=== PATIENT | female | born 1955 | race Hispanic/Latino ===

== ENCOUNTER 2019-12-26 08:45 | Inpatient (IN) | payer MEDICARE ==
[~2019-12-26] VITALS: Ht 162.6 cm; Wt 78.6 kg
[~2019-12-26 08:45] MED LIST: BUSP7.5T7 PO; ENAL5TAB17 PO; FERR325T22 PO; FURO20TA4 PO; HYDR-3830 PO; MECL-160 PO; ONDA-104 PO; POTA-9 PO; PROP10TA10 PO
[2019-12-26] MEDS ORDERED: ACETAMINOPHEN 325 MG TAB ONE (08:55)
[2019-12-26] MEDS ORDERED: ONDANSETRON HCL 4 MG/2 ML VIAL ONE (09:10)
[2019-12-26 09:13] LABS: APPEARANCE,URINE Clear (CLEAR); BILIRUBIN,URINE Small (NEGATIVE); COLOR,URINE Dark Yellow (YELLOW); GLUCOSE, URINE (UA) Negative (NEGATIVE); KETONES,URINE Trace mg/dL (NEGATIVE); LEUKOCYTE ESTERASE ,URINE Trace (NEGATIVE); NITRATE,URINE Negative (NEGATIVE); OCCULT BLOOD,URINE Nonhemolyzed Trace (NEGATIVE); PROTEIN,URINE Trace mg/dL (NEGATIVE)
[2019-12-26 09:17] LABS: BASOPHILS % (AUTO) 0.2 % (0.0-5.0); EOSINOPHILS % (AUTO) 0.2 % (0.0-8.0); HEMATOCRIT 36.4 % (36-48); LYMPHOCYTES % (AUTO) 13.6 % (21.0-51.0); MEAN CORPUSCULAR HEMOGLOBIN 32.3 pg (27.0-33.0); MEAN CORPUSCULAR HGB CONC 34.6 g/dL (32.0-36.0); MEAN CORPUSCULAR VOLUME 93.3 fL (79-99); MONOCYTES % (AUTO) 7.9 % (3.0-13.0); NEUTROPHILS % (AUTO) 77.9 % (40.0-77.0); PLATELET COUNT (AUTO) 43 K/uL (130-400); RED CELL DISTRIBUTION WIDTH 13.5 % (11.0-15.5); WHITE BLOOD COUNT (AUTO) 5.8 K/uL (4.8-10.8)
[2019-12-26 09:20] LABS: BACTERIA,URINE Rare /HPF (None Seen); RBC,URINE 0-1 /HPF (0-1); SQUAMOUS EPITHELIAL CELL,UR Few /HPF (0-2); WBC,URINE 0-1 /HPF (0-1); YEAST,URINE BUDDING Few /HPF (None Seen)
[2019-12-26 09:27] LABS: CREATININE 0.5 mg/dL (0.5-1.5); POTASSIUM 3.5 mmol/L (3.5-5.1)
[2019-12-26 09:32] LABS: ALBUMIN 3.3 g/dL (3.5-5.0); BILIRUBIN,TOTAL 2.9 mg/dL (0.2-1.0); INR 1.14 (0.85-1.15); PARTIAL THROMBOPLASTIN TIME 29.9 SEC (26.3-35.5); PROTHROMBIN TIME 12.2 SEC (9.6-11.6); TOTAL PROTEIN, SERUM 6.3 g/dL (6.0-8.3)
[2019-12-26] MEDS ORDERED: ZOSYN 3.375GM+NS 50ML 50 ML IV ONE (10:26)
[2019-12-26] MEDS ORDERED: KETOROLAC TROMETHAMINE 15MG/ML ONE (10:26)
[2019-12-26] MEDS: SODIUM CHLORIDE 0.9% 1000ML 1,000 ML IV SCH ×2 (11:00→23:20)
[2019-12-26] MEDS ORDERED: ONDANSETRON HCL 4 MG/2 ML VIAL IVP PRN (11:00)
[2019-12-26] MEDS ORDERED: IBUPROFEN 600 MG TABLET PO PRN (11:00)
[2019-12-26] MEDS ORDERED: HYDRALAZINE HCL 20 MG/ML VIAL IV PRN (11:00)
[2019-12-26] MEDS: ACETAMINOPHEN-CODEINE 300/30MG TAB PO PRN ×2 (12:42→18:53)
[2019-12-26 16:00] VITALS: BP 134/60
[2019-12-26 19:00] VITALS: BP 142/62
[2019-12-26] MEDS: ACETAMINOPHEN 325 MG TAB PO PRN (19:59)
[2019-12-26 23:00] VITALS: BP 140/51
[2019-12-27] VITALS (7 sets, daily range): BP systolic 121–198; BP diastolic 47–89
[2019-12-27] MEDS: ACETAMINOPHEN 325 MG TAB PO PRN (01:05)
[2019-12-27] MEDS: ACETAMINOPHEN-CODEINE 300/30MG TAB PO PRN ×3 (01:05→19:02)
[2019-12-27 04:44] LABS: BASOPHILS % (AUTO) 0.3 % (0.0-5.0); HEMATOCRIT 34.4 % (36-48); LYMPHOCYTES % (AUTO) 33.8 % (21.0-51.0); MEAN CORPUSCULAR HGB CONC 33.4 g/dL (32.0-36.0); MEAN CORPUSCULAR VOLUME 95.8 fL (79-99); MONOCYTES % (AUTO) 8.9 % (3.0-13.0); NEUTROPHILS % (AUTO) 55.7 % (40.0-77.0); PLATELET COUNT (AUTO) 37 K/uL (130-400); RED BLOOD CELL COUNT(AUTO) 3.59 MIL/uL (4.00-5.50); RED CELL DISTRIBUTION WIDTH 13.5 % (11.0-15.5); WHITE BLOOD COUNT (AUTO) 2.9 K/uL (4.8-10.8)
[2019-12-27 05:19] LABS: BAND NEUTROPHILS % (MANUAL) 1 % (0-2); BASOPHILS % (MANUAL) 1 % (0-2); EOSINOPHILS % (MANUAL) 3 % (1-6); LYMPHOCYTES % (MANUAL) 30 % (22-44); MAN.DIFF COMMENT-IMPRESSION MANUAL DIFFERENTIAL; MONOCYTES % (MANUAL) 7 % (2-9); SEGMENTED NEUTROPHILS % 58 % (40-70)
[2019-12-27 05:28] LABS: CREATININE 0.5 mg/dL (0.5-1.5); POTASSIUM 3.4 mmol/L (3.5-5.1)
[2019-12-27] MEDS ORDERED: LIDOCAINE HCL-MPF 1% 2ML VIAL IJ PRN (05:45)
[2019-12-27] MEDS ORDERED: POTASSIUM CHLORIDE 20MEQ/100ML 100 ML IV PRN (05:45)
[2019-12-27] MEDS: PANTOPRAZOLE 40 MG/VIAL IVP SCH (08:40)
[2019-12-27] MEDS: POTASSIUM CHLORIDE 20 MEQ ERTAB PO PRN ×2 (08:47→11:54)
[2019-12-27] MEDS: CEFTRIAXONE SODIUM 1 GM IVP SCH (11:52)
--- NOTE | 2019-12-27 12:34 | NUR ---
JOSE FRANCO Spoke with son on phone. As per son, patient is independent prior to admission, lives at home alone. Patient is reported to have a standard walker and cane. Son is unsure whether patient has any other equipment/services. Son is hesitant on patient returning home alone since she has no help at home. Daughter Dacia Dong is a teacher and unavailable throughout business day except for transport. CM to continue to follow up. Addendum: 12/27/19 at 1238 by SHANE CARTER Amended: Links added.
[2019-12-27] MEDS: SODIUM CHLORIDE 0.9% 1000ML 1,000 ML IV SCH ×2 (13:41→18:19)
[2019-12-27] MEDS ORDERED: VANCOMYCIN PROTOCOL PER PHARMACY IV SCH (14:00)
[2019-12-27] MEDS ORDERED: BRIM5DRO OP (14:14)
[2019-12-27] MEDS ORDERED: PROP20TA7 PO (14:14)
[2019-12-27] MEDS ORDERED: FURO40TA5 PO (14:14)
[2019-12-27] MEDS ORDERED: HYDR-3830 PO (14:14)
[2019-12-27] MEDS ORDERED: BUSP7.5T7 PO (14:14)
[2019-12-27] MEDS ORDERED: FERR325T22 PO (14:14)
[2019-12-27] MEDS ORDERED: MECL-160 PO (14:14)
[2019-12-27] MEDS ORDERED: PHARMACY COMMUNICATION MISC SCH (14:15)
[2019-12-27] MEDS ORDERED: MECLIZINE HCL 25 MG TABLET PO PRN (16:45)
[2019-12-27] MEDS ORDERED: HYDROXYZINE HCL 10 MG TABLET PO PRN (16:45)
[2019-12-27] MEDS: VANCOMYCIN 500MG+NS 100ML 100 ML IV SCH ×2 (18:21→18:31)
[2019-12-27] MEDS: BRIMONIDINE TARTRATE OP SCH (20:43)
[2019-12-27] MEDS: FERROUS SULFATE 325 MG TABLET.DR PO SCH (20:43)
[2019-12-27] MEDS: FUROSEMIDE 20 MG TABLET PO SCH (20:43)
[2019-12-27] MEDS: PROPRANOLOL HCL 20 MG TAB PO SCH (20:43)
[2019-12-27] MEDS: TIMOLOL OP SCH (20:43)
[2019-12-27] MEDS: BUSPIRONE HCL 5 MG TABLET PO PRN (20:44)
[2019-12-27] MEDS: NAPROXEN 250 MG TAB PO PRN (20:44)
[2019-12-27] MEDS ORDERED: HYDRALAZINE HCL 25 MG TABLET ONE (21:40)
[2019-12-28 04:12] VITALS: BP 139/53
[2019-12-28] MEDS: BRIMONIDINE TARTRATE OP SCH ×3 (09:00→21:00)
[2019-12-28] MEDS: TIMOLOL OP SCH ×3 (09:00→21:00)
[2019-12-28 09:02] VITALS: BP 132/64
[2019-12-28] MEDS: BUSPIRONE HCL 5 MG TABLET PO PRN (10:18)
[2019-12-28] MEDS: FUROSEMIDE 20 MG TABLET PO SCH ×2 (10:19→20:16)
[2019-12-28] MEDS: PROPRANOLOL HCL 20 MG TAB PO SCH ×2 (10:19→20:15)
[2019-12-28] MEDS: CEFTRIAXONE SODIUM 1 GM IVP SCH (10:19)
[2019-12-28] MEDS: FERROUS SULFATE 325 MG TABLET.DR PO SCH ×3 (10:19→20:16)
[2019-12-28] MEDS: PANTOPRAZOLE 40 MG/VIAL IVP SCH (10:19)
[2019-12-28] MEDS: SODIUM CHLORIDE 0.9% 1000ML 1,000 ML IV SCH (10:20)
--- NOTE | 2019-12-28 11:00 | NUR ---
MET W PATIENT AT BEDSIDE FOR DC PLANNING SISTER ALSO IN ROOM, PATIENT STATES LIVES ALONE, DRIVES, PATIENT STATES HAS PROVIDER SERVICE 32 HR WK; HISTORY HEP C AND AT ONE TIME WAS VERY WEAK AND DEBILITATED ACCORDING TO PATIENT BUT SINCE MED [facility]IME HAS MUCH MORE ENERGY AND IS MOSTLY PAIN FREE. DCP IS HOME, NO CONCERNS
[2019-12-28 11:47] VITALS: BP 162/70
[2019-12-28] MEDS ORDERED: CYCL5TAB PO (13:52)
[2019-12-28] MEDS ORDERED: TRAZ-185 PO (13:52)
[2019-12-28] MEDS ORDERED: PANT40TA PO (13:52)
[2019-12-28] MEDS ORDERED: ONDA4TAB10 PO (13:52)
[2019-12-28] MEDS ORDERED: LATA7.5D OU (13:52)
[2019-12-28] MEDS ORDERED: ENAL5TAB17 PO (13:52)
[2019-12-28 16:12] VITALS: BP 142/74
[2019-12-28] MEDS: VANCOMYCIN 500MG+NS 100ML 100 ML IV SCH (16:49)
[2019-12-28 19:38] VITALS: BP 129/56
[2019-12-28] MEDS: NAPROXEN 250 MG TAB PO PRN (20:21)
[2019-12-28] MEDS: ACETAMINOPHEN 325 MG TAB PO PRN (20:23)
[2019-12-29] VITALS (7 sets, daily range): BP systolic 113–160; BP diastolic 40–68
[2019-12-29] MEDS: VANCOMYCIN 500MG+NS 100ML 100 ML IV SCH ×2 (03:27→16:23)
[2019-12-29 05:54] LABS: BASOPHILS % (AUTO) 0.4 % (0.0-5.0); EOSINOPHILS % (AUTO) 2.6 % (0.0-8.0); HEMATOCRIT 36.4 % (36-48); LYMPHOCYTES % (AUTO) 43.4 % (21.0-51.0); MEAN CORPUSCULAR HEMOGLOBIN 31.8 pg (27.0-33.0); MEAN CORPUSCULAR HGB CONC 33.2 g/dL (32.0-36.0); MEAN CORPUSCULAR VOLUME 95.8 fL (79-99); MONOCYTES % (AUTO) 9.4 % (3.0-13.0); NEUTROPHILS % (AUTO) 44.2 % (40.0-77.0); PLATELET COUNT (AUTO) 59 K/uL (130-400); RED CELL DISTRIBUTION WIDTH 13.4 % (11.0-15.5); WHITE BLOOD COUNT (AUTO) 2.7 K/uL (4.8-10.8)
[2019-12-29 06:06] LABS: CREATININE 0.5 mg/dL (0.5-1.5); POTASSIUM 3.7 mmol/L (3.5-5.1)
[2019-12-29] MEDS: FUROSEMIDE 20 MG TABLET PO SCH ×2 (07:52→20:36)
[2019-12-29] MEDS: PANTOPRAZOLE SODIUM 40 MG TABLET.DR PO SCH (09:07)
[2019-12-29] MEDS: BRIMONIDINE TARTRATE OP SCH ×3 (09:07→20:43)
[2019-12-29] MEDS: FERROUS SULFATE 325 MG TABLET.DR PO SCH ×3 (09:07→20:36)
[2019-12-29] MEDS: TIMOLOL OP SCH ×3 (09:07→20:43)
[2019-12-29] MEDS: PROPRANOLOL HCL 20 MG TAB PO SCH ×2 (09:07→20:36)
[2019-12-29] MEDS ORDERED: MAG HYDROX/AL HYDROX/SIMETH ES 30 ML SUSP UDCUP PO PRN (11:30)
[2019-12-29] MEDS ORDERED: ZOLPIDEM TARTRATE 5 MG TAB PO PRN (11:30)
[2019-12-29] MEDS ORDERED: HYDROCODONE/ACETAMINOPHEN 5/325 MG TAB PO PRN (11:30)
[2019-12-29] MEDS: CEFTRIAXONE SODIUM 1 GM IVP SCH (12:26)
[2019-12-29] MEDS ORDERED: POLYETHYLENE GLYCOL 3350 17 GM POWD.PACK PO SCH (15:30)
[2019-12-29] MEDS: LACTULOSE 20 GM/30 ML UDCUP PO SCH ×2 (16:22→23:49)
[2019-12-29] MEDS: LATANOPROST 2.5 ML DROPS OU SCH (20:36)
[2019-12-29] MEDS: HYDROCODONE/ACETAMINOPHEN 5/325 MG TAB PO PRN (20:41)
--- NOTE | 2019-12-29 22:21 | NUR ---
BASIM HOSPITALIST Pt c/o pain to her left leg not relieved by basim Mooney NP.
[2019-12-29] MEDS ORDERED: MORPHINE SULFATE 2 MG/ML 1ML SYG ONE (22:29)
[2019-12-29] MEDS ORDERED: MORPHINE SULFATE 2 MG/ML 1ML SYG IVP ONE (22:30)
--- NOTE | 2019-12-29 22:31 | NUR ---
PAIN Pt complained of pain to LLE,medicated with morphine.
[2019-12-30] MEDS: VANCOMYCIN 500MG+NS 100ML 100 ML IV SCH (04:00)
[2019-12-30 04:05] VITALS: BP 122/81
[2019-12-30 05:20] LABS: BASOPHILS % (AUTO) 0.4 % (0.0-5.0); EOSINOPHILS % (AUTO) 2.7 % (0.0-8.0); HEMATOCRIT 32.2 % (36-48); LYMPHOCYTES % (AUTO) 49.2 % (21.0-51.0); MEAN CORPUSCULAR HEMOGLOBIN 32.5 pg (27.0-33.0); MEAN CORPUSCULAR HGB CONC 34.2 g/dL (32.0-36.0); MEAN CORPUSCULAR VOLUME 95.3 fL (79-99); MONOCYTES % (AUTO) 10.4 % (3.0-13.0); NEUTROPHILS % (AUTO) 37.3 % (40.0-77.0); PLATELET COUNT (AUTO) 53 K/uL (130-400); RED BLOOD CELL COUNT(AUTO) 3.38 MIL/uL (4.00-5.50); RED CELL DISTRIBUTION WIDTH 13.5 % (11.0-15.5); WHITE BLOOD COUNT (AUTO) 2.6 K/uL (4.8-10.8)
[2019-12-30] MEDS: LACTULOSE 20 GM/30 ML UDCUP PO SCH ×3 (05:34→20:59)
[2019-12-30 05:42] LABS: ALBUMIN 2.7 g/dL (3.5-5.0); BILIRUBIN,TOTAL 0.7 mg/dL (0.2-1.0); CREATININE 0.5 mg/dL (0.5-1.5); POTASSIUM 3.9 mmol/L (3.5-5.1); TOTAL PROTEIN, SERUM 5.4 g/dL (6.0-8.3)
--- NOTE | 2019-12-30 06:20 | NUR ---
VANCOMYCIN Trough 2.9 faxed to pharmacy,awaiting for new dose.
[2019-12-30] MEDS: VANCOMYCIN 1GM+NS 250ML 250 ML IV SCH ×2 (07:00→19:24)
[2019-12-30 08:18] VITALS: BP 151/62
[2019-12-30] MEDS: PANTOPRAZOLE SODIUM 40 MG TABLET.DR PO SCH (08:58)
[2019-12-30] MEDS: FERROUS SULFATE 325 MG TABLET.DR PO SCH ×3 (08:59→20:58)
[2019-12-30] MEDS: FUROSEMIDE 20 MG TABLET PO SCH ×2 (08:59→20:58)
[2019-12-30] MEDS: BRIMONIDINE TARTRATE OP SCH ×3 (08:59→21:00)
[2019-12-30] MEDS: TIMOLOL OP SCH ×3 (08:59→21:00)
[2019-12-30] MEDS: ENALAPRIL MALEATE 5 MG TAB PO SCH (09:00)
[2019-12-30 11:32] VITALS: BP 137/49
[2019-12-30] MEDS: PROPRANOLOL HCL 20 MG TAB PO SCH ×2 (13:21→20:58)
[2019-12-30] MEDS: CEFTRIAXONE SODIUM 1 GM IVP SCH (13:21)
[2019-12-30] MEDS ORDERED: GABAPENTIN 100 MG CAPSULE PO PRN (14:45)
[2019-12-30 16:59] VITALS: BP 136/34
[2019-12-30 19:00] VITALS: BP 157/51
[2019-12-30] MEDS: HYDROCODONE/ACETAMINOPHEN 5/325 MG TAB PO PRN ×2 (19:23→23:41)
[2019-12-30] MEDS: LATANOPROST 2.5 ML DROPS OU SCH (21:00)
[2019-12-31] VITALS: BP 125/52
[2019-12-31 03:58] VITALS: BP 124/52
--- NOTE | 2019-12-31 06:00 | NUR ---
NOTE PATIENT WITH LOW BLOOD SUGAR. PAGING DR. APONTE (WHO IS ONCALL FOR DR. BROWN) USING HYPOGLYCEMIA PROTOCOL IN MEAN TIME. UPON CALL BACK FROM DR. APONTE, INQUIRED ABOUT DIABETIC MEDICATIONS AND UPON REVIEW OF EMAR NOTIFIED HIM THAT SHE IS NOT RECEIVING THAT TYPE OF MEDICATIONS. LET HIM KNOW THE READING THIS MORNING AND THAT SHE HAD HYPOGLYCEMIC EPISODES YESTERDAY TOO. RECEIVED ORDERS TO CONTINUE WITH HYPOGLYCEMIA PROTOCOL AND NOT OTHER MEASURES FOR NOW.
[2019-12-31] MEDS: VANCOMYCIN 1GM+NS 250ML 250 ML IV SCH (06:40)
[2019-12-31 08:36] VITALS: BP 150/63
[2019-12-31] MEDS: BRIMONIDINE TARTRATE OP SCH ×2 (09:00→14:00)
[2019-12-31] MEDS: TIMOLOL OP SCH ×2 (09:00→14:00)
[2019-12-31] MEDS: ENALAPRIL MALEATE 5 MG TAB PO SCH (09:24)
[2019-12-31] MEDS: FUROSEMIDE 20 MG TABLET PO SCH (09:24)
[2019-12-31] MEDS: PANTOPRAZOLE SODIUM 40 MG TABLET.DR PO SCH (09:24)
[2019-12-31] MEDS: PROPRANOLOL HCL 20 MG TAB PO SCH (09:24)
[2019-12-31] MEDS: FERROUS SULFATE 325 MG TABLET.DR PO SCH (09:25)
[2019-12-31] MEDS: LACTULOSE 20 GM/30 ML UDCUP PO SCH ×2 (09:25→15:30)
[2019-12-31] MEDS: HYDROCODONE/ACETAMINOPHEN 5/325 MG TAB PO PRN (09:30)
[2019-12-31 11:31] VITALS: BP 137/54
--- NOTE | 2019-12-31 17:53 | NUR ---
DISCHARGE INSTRUCTION PROVIDED TO PATIENT ALONG WITH PRESCRIPTIONS.. PATIENGT VERBILIZED UNDERSTANDING
== END 2019-12-31 17:30 | disposition home or self-care (01) | DRG 603 ==
LOC: EDH 08:45 → OBSVTOIN 10:51 → EDHIP 10:51 → 2AH 12:38 → 3AH 12-27 22:40
PROVIDERS: ADMIT Hospitalist; ATTEND Hospitalist
DX: L03.116 Cellulitis of left lower limb (principal); D69.6 Thrombocytopenia, unspecified; K74.60 Unspecified cirrhosis of liver; E87.6 Hypokalemia; I10 Essential (primary) hypertension; D72.819 Decreased white blood cell count, unspecified; B19.20 Unspecified viral hepatitis C without hepatic coma; N19 Unspecified kidney failure; Z20.828 Contact with and (suspected) exposure to other viral communicable diseases; Z85.41 Personal history of malignant neoplasm of cervix uteri; Z90.710 Acquired absence of both cervix and uterus; L03.115 Cellulitis of right lower limb
CPT/HCPCS: 36415; 71045; 74176; 76700; 80048; 80053; 80202; 81001; 83605; 83735; 84132; 84145; 84484; 85025; 85610; 85730; 87040; 87088; 87426; 87804; 87880; 93005; 93970; C9113; G0378; J0696; J1885; J2405; J2543; J3370; J7030; U0003

== ENCOUNTER 2020-03-18 17:57 | Observation (INO) | payer MEDICARE ==
[~2020-03-18 17:57] MED LIST changes: +BRIM5DRO OP; -BUSP7.5T7 PO; +CYCL5TAB PO; -FURO20TA4 PO; +FURO40TA5 PO; -HYDR-3830 PO; +LATA7.5D OU; -ONDA-104 PO; +PANT40TA PO; -POTA-9 PO; -PROP10TA10 PO; +PROP20TA7 PO; +TRAZ-185 PO
[2020-03-18] MEDS ORDERED: ASPIRIN 325 MG TABLET ONE (18:50)
[2020-03-18 18:54] LABS: BASOPHILS % (AUTO) 0.3 % (0.0-5.0); EOSINOPHILS % (AUTO) 1.9 % (0.0-8.0); HEMATOCRIT 38.2 % (36-48); LYMPHOCYTES % (AUTO) 48.6 % (21.0-51.0); MEAN CORPUSCULAR HEMOGLOBIN 31.9 pg (27.0-33.0); MEAN CORPUSCULAR VOLUME 93.6 fL (79-99); MONOCYTES % (AUTO) 8.9 % (3.0-13.0); NEUTROPHILS % (AUTO) 40.3 % (40.0-77.0); PLATELET COUNT (AUTO) 55 K/uL (130-400); RED BLOOD CELL COUNT(AUTO) 4.08 MIL/uL (4.00-5.50); RED CELL DISTRIBUTION WIDTH 14.2 % (11.0-15.5); WHITE BLOOD COUNT (AUTO) 3.2 K/uL (4.8-10.8)
[2020-03-18 19:10] LABS: CREATININE 0.5 mg/dL (0.5-1.5); POTASSIUM 3.7 mmol/L (3.5-5.1)
[2020-03-18 19:16] LABS: ALBUMIN 3.3 g/dL (3.5-5.0); BILIRUBIN,TOTAL 1.4 mg/dL (0.2-1.0); TOTAL PROTEIN, SERUM 6.2 g/dL (6.0-8.3)
[2020-03-18 19:37] LABS: B-TYPE NATRIURETIC PEPTIDE 69 pg/mL (0-100)
[2020-03-18] MEDS ORDERED: MORPHINE SULFATE 4 MG/1ML SYG ONE (21:27)
[2020-03-18] MEDS ORDERED: ONDANSETRON HCL 4 MG/2 ML VIAL ONE (21:27)
[2020-03-18 21:34] LABS: APPEARANCE,URINE Clear (CLEAR); BILIRUBIN,URINE Negative (NEGATIVE); COLOR,URINE Yellow (YELLOW); GLUCOSE, URINE (UA) Negative (NEGATIVE); KETONES,URINE Negative (NEGATIVE); LEUKOCYTE ESTERASE ,URINE Negative (NEGATIVE); NITRATE,URINE Negative (NEGATIVE); OCCULT BLOOD,URINE Negative (NEGATIVE); PH,URINE 7.5 (5.0-8.0); PROTEIN,URINE Negative (NEGATIVE)
[2020-03-18] MEDS ORDERED: HYDROCHLOROTHIAZIDE 25 MG TABLET PO SCH (23:15)
[2020-03-18] MEDS ORDERED: NITROGLYCERIN 0.4 MG SL TAB SL PRN (23:15)
[2020-03-18] MEDS ORDERED: LISINOPRIL 10 MG TABLET PO SCH (23:15)
[2020-03-18] MEDS ORDERED: ONDANSETRON HCL 4 MG/2 ML VIAL IV PRN (23:15)
[2020-03-18] MEDS ORDERED: ATORVASTATIN CALCIUM 20 MG TABLET PO SCH (23:15)
[2020-03-18] MEDS ORDERED: ACETAMINOPHEN 325 MG TAB PO PRN ×2 (23:15)
[2020-03-18 23:45] LABS: HEMOGLOBIN A1C 4.7 % (4.0-6.0)
[2020-03-19] MEDS ORDERED: FAMOTIDINE 20MG TAB 20 MG TAB ONE
[2020-03-19] MEDS ORDERED: ATORVASTATIN CALCIUM 40 MG TABLET ONE ×2 (00:01→20:47)
[2020-03-19 00:10] LABS: CREATINE KINASE, TOTAL 93 U/L (21-232); MYOGLOBIN 30 ng/mL (10-92); TROPONIN I < 0.04 ng/mL (0.00-0.06)
[2020-03-19 00:58] LABS: AMPHET/METH SCREEN,URINE NEGATIVE (NEGATIVE); BARBITURATE SCREEN, URINE NEGATIVE (NEGATIVE); BENZODIAZEPINES SCREEN,URINE NEGATIVE (NEGATIVE); CANNABINOID SCREEN,URINE NEGATIVE (NEGATIVE); COCAINE SCREEN,URINE NEGATIVE (NEGATIVE); OPIATE SCREEN,URINE NEGATIVE (NEGATIVE); PHENCYCLIDINE SCREEN,URINE NEGATIVE (NEGATIVE)
[2020-03-19] MEDS ORDERED: ACETAMINOPHEN 325 MG TAB ONE (02:03)
[2020-03-19] MEDS ORDERED: HYDROCODONE/ACETAMINOPHEN 5/325 MG TAB ONE ×2 (04:44→14:20)
[2020-03-19 06:07] LABS: CHOLESTEROL 153 mg/dL (<200); HDL CHOLESTEROL 68 mg/dL (35-85); LDL DIRECT 83 mg/dL (0-99); TRIGLYCERIDES 70 mg/dL (30-200)
[2020-03-19 06:09] LABS: AMMONIA 69 umol/L (11-32)
[2020-03-19 06:51] LABS: CREATINE KINASE, TOTAL 94 U/L (21-232); MYOGLOBIN 33 ng/mL (10-92); TROPONIN I < 0.04 ng/mL (0.00-0.06)
[2020-03-19] MEDS ORDERED: LACTULOSE 20 GM/30 ML UDCUP ONE ×2 (08:58→20:46)
[2020-03-19] MEDS ORDERED: FUROSEMIDE 20 MG TABLET ONE (08:59)
[2020-03-19] MEDS ORDERED: ASPIRIN 325 MG TABLET ONE (08:59)
[2020-03-19] MEDS ORDERED: METOPROLOL TARTRATE 25 MG TAB ONE (08:59)
[2020-03-19] MEDS ORDERED: LISINOPRIL 5 MG TABLET ONE (08:59)
[2020-03-19] MEDS ORDERED: RIFAXIMIN 550 MG TABLET PO SCH (09:00)
[2020-03-19] MEDS ORDERED: LISINOPRIL 5 MG TABLET PO SCH (09:00)
[2020-03-19] MEDS ORDERED: FUROSEMIDE 20 MG TABLET PO SCH (09:00)
[2020-03-19] MEDS ORDERED: LACTULOSE 20 GM/30 ML UDCUP PO SCH (09:00)
[2020-03-19] MEDS ORDERED: METOPROLOL TARTRATE 25 MG TAB PO SCH (09:00)
[2020-03-19] MEDS ORDERED: FAMOTIDINE/PF 20 MG/2 ML VIAL IV ONE ×2 (09:00→20:47)
[2020-03-19] MEDS ORDERED: FAMOTIDINE/PF 20 MG/2 ML VIAL IV SCH (09:00)
[2020-03-19] MEDS ORDERED: ASPIRIN 325 MG TABLET PO SCH (09:00)
[2020-03-19] MEDS ORDERED: GABAPENTIN 100 MG CAPSULE ONE ×2 (10:28→18:26)
[2020-03-19] MEDS ORDERED: GABAPENTIN 100 MG CAPSULE PO SCH (11:00)
[2020-03-19 15:53] LABS: CREATINE KINASE, TOTAL 115 U/L (21-232); MYOGLOBIN 45 ng/mL (10-92); TROPONIN I < 0.04 ng/mL (0.00-0.06)
== END 2020-03-19 21:38 | disposition home or self-care (01) ==
LOC: EDH 17:57 → EDHIP 23:11
PROVIDERS: ADMIT Internal Medicine; ATTEND Internal Medicine
DX: I16.0 Hypertensive urgency (principal); R07.89 Other chest pain; D69.6 Thrombocytopenia, unspecified; I10 Essential (primary) hypertension; K74.60 Unspecified cirrhosis of liver; B19.20 Unspecified viral hepatitis C without hepatic coma; M79.601 Pain in right arm; M25.512 Pain in left shoulder; M54.12 Radiculopathy, cervical region; R18.8 Other ascites; I65.23 Occlusion and stenosis of bilateral carotid arteries; Z87.891 Personal history of nicotine dependence; Z85.41 Personal history of malignant neoplasm of cervix uteri; Z90.49 Acquired absence of other specified parts of digestive tract; Z90.710 Acquired absence of both cervix and uterus; Z79.899 Other long term (current) drug therapy; Z88.6 Allergy status to analgesic agent
CPT/HCPCS: 36415 ×2; 70450; 70551; 71045; 72141; 73030; 80053; 80061; 80305; 81003; 82140 ×2; 82550 ×4; 83036; 83874 ×3; 83880; 84484 ×4; 85025; 93005 ×3; 93880; 99285; G0378 ×23; J2270; J2405; J3490 ×2

== ENCOUNTER 2021-04-02 21:43 | Emergency (ER) | payer MEDICARE ==
[~2021-04-02] VITALS: Ht 162.6 cm; Wt 75.3 kg
[2021-04-02 22:19] LABS: BASOPHILS % (AUTO) 0.3 % (0.0-5.0); EOSINOPHILS % (AUTO) 1.9 % (0.0-8.0); HEMATOCRIT 40.5 % (36-48); LYMPHOCYTES % (AUTO) 44.2 % (21.0-51.0); MEAN CORPUSCULAR HEMOGLOBIN 31.5 pg (27.0-33.0); MEAN CORPUSCULAR HGB CONC 33.3 g/dL (32.0-36.0); MEAN CORPUSCULAR VOLUME 94.6 fL (79-99); NEUTROPHILS % (AUTO) 43.6 % (40.0-77.0); PLATELET COUNT (AUTO) 59 K/uL (130-400); RED BLOOD CELL COUNT(AUTO) 4.28 MIL/uL (4.00-5.50); RED CELL DISTRIBUTION WIDTH 13.7 % (11.0-15.5); WHITE BLOOD COUNT (AUTO) 3.2 K/uL (4.8-10.8)
[2021-04-02 22:31] LABS: CREATININE 0.5 mg/dL (0.5-1.5); POTASSIUM 3.8 mmol/L (3.5-5.1)
[2021-04-02 22:34] LABS: INFLUENZA TYPE A NEGATIVE FOR TYPE A (NEG); INFLUENZA TYPE B NEGATIVE FOR TYPE B (NEG)
[2021-04-02 22:36] LABS: ALBUMIN 3.6 g/dL (3.5-5.0); BILIRUBIN,TOTAL 1.3 mg/dL (0.2-1.0); TOTAL PROTEIN, SERUM 6.5 g/dL (6.0-8.3)
[2021-04-02 22:37] LABS: INR 1.14 (0.85-1.15); PROTHROMBIN TIME 12.3 SEC (9.6-11.6)
[2021-04-02 22:38] LABS: PARTIAL THROMBOPLASTIN TIME 28.4 SEC (26.3-35.5)
[2021-04-02 23:31] LABS: PLATELET MORPHOLOGY COMMENT LARGE PLTS PRESENT
[2021-04-03 01:00] VITALS: BP 146/41
[2021-04-03] MEDS ORDERED: ACETAMINOPHEN WITH CODEINE 1 TAB TAB PO ONE (01:00)
[2021-04-03] MEDS ORDERED: GUAI120L62 PO (01:00)
[2021-04-03] MEDS ORDERED: AZIT250T9 PO (01:00)
[2021-04-03] MEDS ORDERED: BENZ-39 PO (01:02)
[2021-04-03] MEDS ORDERED: GUAIFENESIN-CODEINE 5 ML SYRUP ONE (01:13)
[2021-04-03] MEDS ORDERED: GUAIFENESIN-CODEINE 5 ML SYRUP PO ONE (01:30)
== END 2021-04-03 01:24 | disposition home or self-care (01) ==
LOC: EDH 21:50
DX: J40 Bronchitis, not specified as acute or chronic (principal); F41.9 Anxiety disorder, unspecified; I10 Essential (primary) hypertension; I25.10 Atherosclerotic heart disease of native coronary artery without angina pectoris; K21.9 Gastro-esophageal reflux disease without esophagitis; Z20.822 Contact with and (suspected) exposure to COVID-19; Z90.49 Acquired absence of other specified parts of digestive tract; Z90.710 Acquired absence of both cervix and uterus; Z79.899 Other long term (current) drug therapy; Z88.6 Allergy status to analgesic agent
CPT/HCPCS: 36415; 71045; 80053; 84484; 85025; 85610; 85730; 87635; 87804 ×2; 93005; 99285; C9803

== ENCOUNTER 2021-07-23 13:45 | Emergency (ER) | payer MEDICARE ==
[~2021-07-23] VITALS: Ht 162.6 cm; Wt 74.8 kg
[~2021-07-23 13:45] MED LIST changes: +ACET-2247 PO; +AZIT250T9 PO; +BENZ-39 PO; +DIAZ5TAB PO; +GUAI120L62 PO; +NAPR-1180 PO
[2021-07-23 14:01] LABS: BASOPHILS % (AUTO) 0.3 % (0.0-5.0); EOSINOPHILS % (AUTO) 1.8 % (0.0-8.0); HEMATOCRIT 40.2 % (36-48); LYMPHOCYTES % (AUTO) 46.2 % (21.0-51.0); MEAN CORPUSCULAR HEMOGLOBIN 31.3 pg (27.0-33.0); MEAN CORPUSCULAR HGB CONC 33.6 g/dL (32.0-36.0); MEAN CORPUSCULAR VOLUME 93.3 fL (79-99); NEUTROPHILS % (AUTO) 41.7 % (40.0-77.0); PLATELET COUNT (AUTO) 59 K/uL (130-400); RED BLOOD CELL COUNT(AUTO) 4.31 MIL/uL (4.00-5.50); RED CELL DISTRIBUTION WIDTH 14.6 % (11.0-15.5); WHITE BLOOD COUNT (AUTO) 3.3 K/uL (4.8-10.8)
[2021-07-23 14:09] LABS: CREATININE 0.5 mg/dL (0.5-1.5); POTASSIUM 3.7 mmol/L (3.5-5.1)
[2021-07-23 14:14] LABS: ALBUMIN 3.5 g/dL (3.5-5.0); BILIRUBIN,TOTAL 1.9 mg/dL (0.2-1.0); TOTAL PROTEIN, SERUM 6.5 g/dL (6.0-8.3)
[2021-07-23] MEDS ORDERED: CYCLOBENZAPRINE HCL 10 MG TABLET PO ONE (14:30)
[2021-07-23] MEDS ORDERED: POTASSIUM BICARB/CIT AC 25 MEQ TABLET.EFF PO ONE (14:30)
[2021-07-23] MEDS ORDERED: 0.9% NACL 500ML IV.SOLN 500 ML IV SCH (14:30)
[2021-07-23] MEDS ORDERED: KETOROLAC 30MG VIAL (30MG/ML) IM ONE (14:30)
[2021-07-23] MEDS ORDERED: PROMETHAZINE HCL 25 MG/ML 1ML AMPULE IM ONE (14:30)
[2021-07-23] MEDS ORDERED: LACTULOSE 20 GM/30 ML UDCUP PO ONE (15:00)
[2021-07-23 15:17] LABS: APPEARANCE,URINE Clear (CLEAR); BILIRUBIN,URINE Negative (NEGATIVE); COLOR,URINE Yellow (YELLOW); GLUCOSE, URINE (UA) Negative (NEGATIVE); KETONES,URINE Negative (NEGATIVE); LEUKOCYTE ESTERASE ,URINE Negative (NEGATIVE); NITRATE,URINE Negative (NEGATIVE); OCCULT BLOOD,URINE Negative (NEGATIVE); PROTEIN,URINE Negative (NEGATIVE)
[2021-07-23] MEDS ORDERED: NAPR-1180 PO (15:41)
[2021-07-23] MEDS ORDERED: CYCL10TA16 PO (15:41)
[2021-07-23] MEDS ORDERED: ONDA4TAB10 PO (15:42)
[2021-07-23] MEDS ORDERED: CLONIDINE HCL 0.1 MG TABLET ONE (15:47)
[2021-07-23 15:50] VITALS: BP 174/50
[2021-07-23] MEDS ORDERED: CLONIDINE HCL 0.1 MG TABLET PO ONE (16:00)
== END 2021-07-23 15:54 | disposition home or self-care (01) ==
LOC: EDH 13:45
DX: G44.209 Tension-type headache, unspecified, not intractable (principal); A08.4 Viral intestinal infection, unspecified; I10 Essential (primary) hypertension; K74.60 Unspecified cirrhosis of liver; E78.00 Pure hypercholesterolemia, unspecified; Z79.1 Long term (current) use of non-steroidal anti-inflammatories (NSAID); Z79.899 Other long term (current) drug therapy; Z88.5 Allergy status to narcotic agent; Z88.8 Allergy status to other drugs, medicaments and biological substances
CPT/HCPCS: 36415; 71045; 80053; 81003; 82140; 84484; 85025; 93005; 96372 ×2; 99285; J1885; J2550

== ENCOUNTER 2021-09-28 14:46 | Emergency (ER) | payer MEDICARE ==
[~2021-09-28] VITALS: Ht 162.6 cm; Wt 77.1 kg
[~2021-09-28 14:46] MED LIST changes: +CYCL10TA16 PO; +ONDA4TAB10 PO
[2021-09-28 15:12] LABS: HEMATOCRIT 39.5 % (36-48); MEAN CORPUSCULAR HEMOGLOBIN 30.1 pg (27.0-33.0); MEAN CORPUSCULAR HGB CONC 33.7 g/dL (32.0-36.0); MEAN CORPUSCULAR VOLUME 89.4 fL (79-99); PLATELET COUNT (AUTO) 54 K/uL (130-400); RED BLOOD CELL COUNT(AUTO) 4.42 MIL/uL (4.00-5.50); RED CELL DISTRIBUTION WIDTH 13.9 % (11.0-15.5); WHITE BLOOD COUNT (AUTO) 2.5 K/uL (4.8-10.8)
[2021-09-28 15:17] LABS: APPEARANCE,URINE SL CLOUDY (CLEAR); BILIRUBIN,URINE NEGATIVE (NEGATIVE); COLOR,URINE YELLOW (YELLOW); GLUCOSE, URINE (UA) NEGATIVE (NEGATIVE); KETONES,URINE NEGATIVE (NEGATIVE); LEUKOCYTE ESTERASE ,URINE NEGATIVE (NEGATIVE); NITRATE,URINE NEGATIVE (NEGATIVE); OCCULT BLOOD,URINE NEGATIVE (NEGATIVE); PH,URINE 7.5 (5.0-8.0); PROTEIN,URINE NEGATIVE (NEGATIVE)
[2021-09-28 15:24] LABS: CREATININE 0.4 mg/dL (0.5-1.5); POTASSIUM 3.5 mmol/L (3.5-5.1)
[2021-09-28 15:28] LABS: ALBUMIN 3.4 g/dL (3.5-5.0); TOTAL PROTEIN, SERUM 6.5 g/dL (6.0-8.3)
[2021-09-28] MEDS ORDERED: 0.9%NACL 1000ML 1,000 ML IV ONE (15:30)
[2021-09-28] MEDS ORDERED: ONDANSETRON 4MG INJ IVP ONE (15:30)
[2021-09-28] MEDS ORDERED: ACETAMINOPHEN 500 MG TABLET PO ONE (15:30)
[2021-09-28 15:33] LABS: BACTERIA,URINE Rare /HPF (None Seen); MUCUS,URINE Few LPF (None Seen); SQUAMOUS EPITHELIAL CELL,UR Few /HPF (0-2)
[2021-09-28 15:43] LABS: LYMPHOCYTES % (MANUAL) 48 % (22-44); MAN.DIFF COMMENT-IMPRESSION MANUAL DIFFERENTIAL; MONOCYTES % (MANUAL) 9 % (2-9); REACTIVE LYMPHOCYTES 5 % (0-0); SEGMENTED NEUTROPHILS % 38 % (40-70)
[2021-09-28 15:44] LABS: PLATELET MORPHOLOGY COMMENT DECREASED
[2021-09-28] MEDS ORDERED: ONDA4TAB10 PO (16:36)
[2021-09-28] MEDS ORDERED: GUAIF10 PO (16:36)
[2021-09-28] MEDS ORDERED: AZIT500T2 PO (16:36)
[2021-09-28] MEDS ORDERED: IBUP-2070 PO (16:36)
[2021-09-28] MEDS ORDERED: ACET-66 PO (16:36)
[2021-09-28 17:37] VITALS: BP 176/47
== END 2021-09-28 17:46 | disposition home or self-care (01) ==
LOC: EDH 14:46
DX: U07.1 COVID-19 (principal); R11.2 Nausea with vomiting, unspecified; Z88.6 Allergy status to analgesic agent; Z79.899 Other long term (current) drug therapy; Z98.890 Other specified postprocedural states
CPT/HCPCS: 99284; 80053; 85027; 81001; 36415; 87635; 71045; 96374; 96361; C9803; J7030; J2405

== ENCOUNTER 2022-07-08 12:52 | Emergency (ER) | payer MEDICARE ==
[~2022-07-08] VITALS: Ht 162.6 cm; Wt 73.0 kg
[~2022-07-08 12:52] MED LIST changes: +ACET-66 PO; +AZIT500T2 PO; +ENAL-87 PO; -ENAL5TAB17 PO; +GUAIF10 PO; +IBUP-2070 PO
[2022-07-08 13:16] LABS: BASOPHILS % (AUTO) 0.3 % (0.0-5.0); EOSINOPHILS % (AUTO) 1.9 % (0.0-8.0); HEMATOCRIT 36.1 % (36-48); LYMPHOCYTES % (AUTO) 41.2 % (21.0-51.0); MEAN CORPUSCULAR HEMOGLOBIN 31.5 pg (27.0-33.0); MEAN CORPUSCULAR HGB CONC 34.1 g/dL (32.0-36.0); MEAN CORPUSCULAR VOLUME 92.6 fL (79-99); MONOCYTES % (AUTO) 10.7 % (3.0-13.0); NEUTROPHILS % (AUTO) 45.6 % (40.0-77.0); PLATELET COUNT (AUTO) 55 K/uL (130-400); RED CELL DISTRIBUTION WIDTH 14.8 % (11.0-15.5); WHITE BLOOD COUNT (AUTO) 3.1 K/uL (4.8-10.8)
[2022-07-08 13:34] LABS: CREATININE 0.5 mg/dL (0.5-1.5); POTASSIUM 3.8 mmol/L (3.5-5.1)
[2022-07-08 13:41] LABS: ALBUMIN 3.2 g/dL (3.5-5.0)
[2022-07-08] MEDS ORDERED: ALBUTEROL 0.083% 2.5 MG/3 ML INH IH ONE (14:00)
[2022-07-08] MEDS ORDERED: IOHEXOL 350 MG/ML 100ML INFUS..BTL IV ONE (16:33)
[2022-07-08 17:00] VITALS: BP 153/52
== END 2022-07-08 17:48 | disposition home or self-care (01) ==
LOC: EDH 12:52
DX: R06.00 Dyspnea, unspecified (principal); I10 Essential (primary) hypertension; Z79.1 Long term (current) use of non-steroidal anti-inflammatories (NSAID); Z79.899 Other long term (current) drug therapy; Z88.5 Allergy status to narcotic agent; Z88.8 Allergy status to other drugs, medicaments and biological substances; Z90.49 Acquired absence of other specified parts of digestive tract; Z20.822 Contact with and (suspected) exposure to COVID-19
CPT/HCPCS: 99285; 71270; 71045; 87635; 84484; 80053; 85025; 85378; 87880; 87804 ×2; 36415; 93005; 94640; C9803; Q9967

== ENCOUNTER 2023-01-11 19:16 | Observation (INO) | payer MEDICARE ==
[~2023-01-11] VITALS: Ht 162.6 cm; Wt 74.5 kg
[~2023-01-11 19:16] MED LIST changes: -MECL-160 PO; +MECL-302 PO
[2023-01-11 20:10] LABS: EOSINOPHILS # (AUTO) 0.05 K/uL (0.00-0.70); EOSINOPHILS % (AUTO) 2.1 % (0.0-8.0); HEMATOCRIT 36.8 % (36-48); LYMPHOCYTES # (AUTO) 1.2 K/uL (1.0-4.8); LYMPHOCYTES % (AUTO) 49.8 % (21.0-51.0); MEAN CORPUSCULAR HEMOGLOBIN 31.8 pg (27.0-33.0); MEAN CORPUSCULAR HGB CONC 33.2 g/dL (32.0-36.0); MEAN CORPUSCULAR VOLUME 95.8 fL (79-99); MONOCYTES # (AUTO) 0.3 K/uL (0.1-1.0); MONOCYTES % (AUTO) 10.3 % (3.0-13.0); NEUTROPHILS # (AUTO) 0.9 K/uL (1.8-7.7); NEUTROPHILS % (AUTO) 37.8 % (40.0-77.0); PLATELET COUNT (AUTO) 66 K/uL (130-400); RED BLOOD CELL COUNT(AUTO) 3.84 MIL/uL (4.00-5.50); RED CELL DISTRIBUTION WIDTH 14.1 % (11.0-15.5); WHITE BLOOD COUNT (AUTO) 2.4 K/uL (4.8-10.8)
[2023-01-11 20:18] LABS: CREATININE 0.5 mg/dL (0.5-1.5); POTASSIUM 3.7 mmol/L (3.5-5.1)
[2023-01-11 20:19] LABS: INR 1.11 (0.85-1.15); PROTHROMBIN TIME 12.8 SEC (9.6-11.6)
[2023-01-11 20:20] LABS: PARTIAL THROMBOPLASTIN TIME 29.9 SEC (26.3-35.5)
[2023-01-11 20:23] LABS: ALBUMIN 3.2 g/dL (3.5-5.0); BILIRUBIN,TOTAL 1.4 mg/dL (0.2-1.0); TOTAL PROTEIN, SERUM 6.2 g/dL (6.0-8.3)
[2023-01-11 20:33] LABS: APPEARANCE,URINE CLOUDY (CLEAR); BILIRUBIN,URINE NEGATIVE (NEGATIVE); COLOR,URINE YELLOW (YELLOW); GLUCOSE, URINE (UA) NEGATIVE (NEGATIVE); KETONES,URINE NEGATIVE (NEGATIVE); LEUKOCYTE ESTERASE ,URINE NEGATIVE Leu/uL (NEGATIVE); NITRATE,URINE NEGATIVE (NEGATIVE); PROTEIN,URINE NEGATIVE (NEGATIVE); UROBILINOGEN,URINE 3 mg/dL (0.2-1.0)
[2023-01-11 20:36] LABS: ADD UA MICROSCOPIC YES
[2023-01-11 20:39] LABS: BACTERIA,URINE FEW /HPF (None Seen); MUCUS,URINE RARE LPF (None Seen); SQUAMOUS EPITHELIAL CELL,UR MOD /HPF (0-2); YEAST,URINE BUDDING FEW /HPF (None Seen)
[2023-01-11 20:44] LABS: EOSINOPHILS % (MANUAL) 2 % (1-6); LYMPHOCYTES % (MANUAL) 43 % (22-44); MAN.DIFF COMMENT-IMPRESSION MANUAL DIFFERENTIAL; MONOCYTES % (MANUAL) 4 % (2-9); REACTIVE LYMPHOCYTES 10 % (0-0); SEGMENTED NEUTROPHILS % 41 % (40-70); TOTAL CELLS COUNTED 100
[2023-01-12] VITALS (16 sets, daily range): BP systolic 105–177; BP diastolic 30–62; PULSE 53–62; RESP 18–20; O2SAT 96–100
[2023-01-12] MEDS ORDERED: ACETAMINOPHEN 325 MG TAB PO PRN ×2 (00:30)
[2023-01-12] MEDS ORDERED: POTASSIUM CHLORIDE 10% ELIXIR 20 MEQ/15 ML UDCUP PO PRN (00:30)
[2023-01-12] MEDS ORDERED: HYDROMORPHONE 1 MG INJ IV PRN (00:30)
[2023-01-12] MEDS ORDERED: ONDANSETRON 4MG INJ IV PRN (00:30)
[2023-01-12] MEDS ORDERED: KCL 20 MEQ ERTAB PO PRN (00:30)
[2023-01-12] MEDS ORDERED: IPRATROPIUM/ALBUTEROL SULFATE 3 ML SOLUTION IH PRN (00:30)
[2023-01-12] MEDS ORDERED: PHARMACY COMMUNICATION MISC SCH ×2 (00:30→01:00)
[2023-01-12] MEDS ORDERED: POTASSIUM CHLORIDE 20MEQ/100ML 100 ML IV PRN (00:30)
[2023-01-12 00:56] LABS: RAPID GROUP A STREP negative (NEGATIVE)
[2023-01-12 01:01] LABS: SARS-CoV-2, RNA, NAAT NEGATIVE SARS CoV-2 (NEGATIVE)
[2023-01-12] MEDS: MAGNESIUM 2GM PREMIX 50ML 50 ML IV PRN ×2 (01:01→08:37)
[2023-01-12] MEDS: HYDROCODONE/ACETAMINOPHEN 5/325 MG TAB PO PRN ×4 (01:01→18:27)
[2023-01-12 01:05] LABS: INFLUENZA TYPE A Negative For Type A (NEGATIVE); INFLUENZA TYPE B Negative For Type B (NEGATIVE)
[2023-01-12 05:27] LABS: BASOPHILS # (AUTO) 0.01 K/uL (0.00-0.20); BASOPHILS % (AUTO) 0.4 % (0.0-5.0); EOSINOPHILS # (AUTO) 0.04 K/uL (0.00-0.70); EOSINOPHILS % (AUTO) 1.7 % (0.0-8.0); HEMATOCRIT 33.8 % (36-48); LYMPHOCYTES # (AUTO) 1.3 K/uL (1.0-4.8); LYMPHOCYTES % (AUTO) 52.5 % (21.0-51.0); MEAN CORPUSCULAR HEMOGLOBIN 31.9 pg (27.0-33.0); MEAN CORPUSCULAR VOLUME 93.6 fL (79-99); MONOCYTES # (AUTO) 0.3 K/uL (0.1-1.0); MONOCYTES % (AUTO) 10.8 % (3.0-13.0); NEUTROPHILS # (AUTO) 0.8 K/uL (1.8-7.7); NEUTROPHILS % (AUTO) 34.6 % (40.0-77.0); PLATELET COUNT (AUTO) 60 K/uL (130-400); RED BLOOD CELL COUNT(AUTO) 3.61 MIL/uL (4.00-5.50); RED CELL DISTRIBUTION WIDTH 14.1 % (11.0-15.5); WHITE BLOOD COUNT (AUTO) 2.4 K/uL (4.8-10.8)
[2023-01-12 05:39] LABS: INR 1.15 (0.85-1.15); PROTHROMBIN TIME 13.2 SEC (9.6-11.6)
[2023-01-12 05:40] LABS: PARTIAL THROMBOPLASTIN TIME 31.3 SEC (26.3-35.5)
[2023-01-12 05:41] LABS: CREATININE 0.5 mg/dL (0.5-1.5); MAGNESIUM 1.8 mg/dL (1.80-2.40)
[2023-01-12] MEDS: LACTULOSE 20 GM/30 ML UDCUP PO SCH ×2 (08:35→19:32)
[2023-01-12] MEDS: FUROSEMIDE 40MG VIAL IVP SCH ×2 (08:36→19:32)
[2023-01-12] MEDS: FAMOTIDINE 20MG TAB PO SCH (08:36)
[2023-01-12] MEDS ORDERED: ALBUMIN (HUMAN) 25% 200 ML IV SCH (10:30)
[2023-01-12 12:07] LABS: APPEARANCE BODY FLUID CLEAR (CLEAR); COLOR,BODY FLUID YELLOW (LT YELLOW); SPECIMENTYPE,BODY FLUID ASCITES; TOTAL VOLUME,BODY FLUID 4000 mL
[2023-01-12 12:23] LABS: BODY FLUID RBC 1236 /cu. mm.; BODY FLUID WBC 131 /cu. mm.
[2023-01-12 12:56] LABS: BF LYMPHOCYTE 54 %; BF MESOTHELIAL 44 %; BF MONOCYTE 2 %; BF TOTAL CELLS COUNTED 100
[2023-01-13 04:00] VITALS: BP 130/60; PULSE 58; RESP 18
[2023-01-13 04:36] LABS: BASOPHILS # (AUTO) 0.01 K/uL (0.00-0.20); BASOPHILS % (AUTO) 0.4 % (0.0-5.0); EOSINOPHILS # (AUTO) 0.03 K/uL (0.00-0.70); EOSINOPHILS % (AUTO) 1.2 % (0.0-8.0); HEMATOCRIT 33.4 % (36-48); IMMATURE GRANULOCYTE ABSOLUTE 0.01 K/uL (0-1); LYMPHOCYTES # (AUTO) 1.1 K/uL (1.0-4.8); LYMPHOCYTES % (AUTO) 47.1 % (21.0-51.0); MEAN CORPUSCULAR HEMOGLOBIN 31.7 pg (27.0-33.0); MEAN CORPUSCULAR HGB CONC 33.5 g/dL (32.0-36.0); MEAN CORPUSCULAR VOLUME 94.6 fL (79-99); MONOCYTES # (AUTO) 0.3 K/uL (0.1-1.0); MONOCYTES % (AUTO) 11.6 % (3.0-13.0); NEUTROPHILS % (AUTO) 39.3 % (40.0-77.0); PLATELET COUNT (AUTO) 56 K/uL (130-400); RED BLOOD CELL COUNT(AUTO) 3.53 MIL/uL (4.00-5.50); WHITE BLOOD COUNT (AUTO) 2.4 K/uL (4.8-10.8)
[2023-01-13 04:51] LABS: CREATININE 0.5 mg/dL (0.5-1.5); POTASSIUM 3.7 mmol/L (3.5-5.1)
[2023-01-13 07:11] VITALS: PULSE 63; RESP 18; O2SAT 95
[2023-01-13 08:00] VITALS: BP 160/38; PULSE 56; RESP 18
[2023-01-13] MEDS: FAMOTIDINE 20MG TAB PO SCH (08:38)
[2023-01-13] MEDS: LACTULOSE 20 GM/30 ML UDCUP PO SCH (08:38)
[2023-01-13] MEDS: FUROSEMIDE 40MG VIAL IVP SCH (08:39)
[2023-01-13 09:00] VITALS: O2SAT 100
== END 2023-01-13 15:00 | disposition home or self-care (01) ==
LOC: EDH 19:16 → INTOOBSV 01-12 00:05 → EDHIP 01-12 00:05 → 4DH 01-12 03:36
PROVIDERS: ADMIT Internal Medicine; ATTEND Internal Medicine
DX: R18.8 Other ascites (principal); Z20.822 Contact with and (suspected) exposure to COVID-19; D69.6 Thrombocytopenia, unspecified; K74.60 Unspecified cirrhosis of liver; I10 Essential (primary) hypertension; B18.2 Chronic viral hepatitis C; F17.210 Nicotine dependence, cigarettes, uncomplicated; D64.9 Anemia, unspecified; Z51.5 Encounter for palliative care; Z85.41 Personal history of malignant neoplasm of cervix uteri; Z90.710 Acquired absence of both cervix and uterus; Z90.49 Acquired absence of other specified parts of digestive tract; Z79.899 Other long term (current) drug therapy; Z98.890 Other specified postprocedural states
CPT/HCPCS: 99285; 76700; 71045; 83735 ×2; 84484; 80053; 83880; 82140; 83690; 85025 ×3; 85610 ×2; 85730 ×2; 81001; 36415 ×3; 93005; 49083; 96365; 96366; 96375; 96367; 87635; 96376 ×2; 84100; 80048 ×2; 89051; 86850; 86900; 86901; 87071; 87880; 87205; 87804 ×2; 94664; P9046; J3475 ×2; J1170; J2405; J1940 ×3; C1729; G0378